=== PATIENT | male | born 1985 | race Caucasian/White ===

== ENCOUNTER 2022-09-28 18:11 | Emergency (ER) | payer SELFPAY ==
[~2022-09-28] VITALS: Ht 177.8 cm; Wt 86.2 kg
[2022-09-28 18:15] VITALS: BP 138/68
--- NOTE | 2022-09-28 19:05 | NUR ---
PT BEING EVALUATED BY TELEPSYCH DR HEALY
[2022-09-28] MEDS ORDERED: RIS1 PO (19:24)
[2022-09-28] MEDS ORDERED: risperiDONE 1 MG TAB PO SCH (19:25)
[2022-09-28 19:33] VITALS: BP 138/68
--- NOTE | 2022-09-28 19:34 | NUR ---
Patient discharged with v/s stable. Written and verbal after care instructions given and explained. New rx for risperidone. Patient verbalized understanding. Ambulatory with steady gait. All questions addressed prior to discharge. Advised to follow up with PMD.
== END 2022-09-28 19:43 | disposition home or self-care (01) ==
LOC: MED 18:11
DX: F41.9 Anxiety disorder, unspecified (principal); F15.10 Other stimulant abuse, uncomplicated; Z79.899 Other long term (current) drug therapy
CPT/HCPCS: 99281